=== PATIENT | female | born 1990 | race Caucasian/White ===

== ENCOUNTER 2017-01-28 07:07 | Emergency (ER) | payer MEDICAID ==
[~2017-01-28] VITALS: Ht 165.1 cm; Wt 74.0 kg
[~2017-01-28 07:07] MED LIST: EXCED PO; ONDA4TAB14 PO
[2017-01-28 07:09] VITALS: Ht 165.1 cm; Wt 74.0 kg
--- NOTE | 2017-01-28 07:40 | ERD ---
ER Documentation Chief Complaint Date/Time DATE: 01/28/17 TIME: 07:27 Chief Complaint left eye lynn, vomitting x 2 days HPI 26-year-old female presented emergency department for left-sided facial pain, vomiting, urinary frequency. Her symptoms been on and off for about 2 days. Had a nonbilious and nonbloody vomiting once this morning. Denies headache, loss of consciousness, dizziness, blurry vision, changes in vision, photophobia, ear pain, throat pain, difficulty swallowing, neck pain, shoulder pain, chest pain, cough, hemoptysis, abdominal pain, back pain, loss of appetite, hematochezia, diarrhea, constipation, , the possibility of being , bladder and bowel incontinences, extremity weakness, extremity tenderness, numbness or tingling sensation, difficulty walking, recent travel, recent exposure to illness, recent antibiotic use in the last 3 months, fever, chills. Allergy: NKDA. PMH: Denies. Family medical history: Denies. AO LMP: January 21, 2017. Medications: Denies. Surgery: Denies. Primary Social History: Denies smoking, use of alcohol, use of illegal drugs. ROS All systems reviewed and are negative except as per history of present illness. Medications Home Meds Active Scripts Acetaminophen/Aspirin/Caffeine* (Excedrin*) 1 Tab Tab, 1 TAB PO BID Y for HEADACHE, #15 TAB Prov:MERLE ROCHA 01/28/17 Ibuprofen* (Motrin*) 800 Mg Tab, 800 MG PO Q6H Y for PAIN AND OR ELEVATED TEMP, #30 TAB Prov:MERLE ROCHA 01/28/17 Amoxicillin/Potassium Clav (Amox-Clav 875-125 mg Tablet) 875-125 mg Tab, 1 TAB PO BID for 7 Days, #14 TAB Prov:JANETMERLE RODRÍGUEZ F 01/28/17 Acetaminophen/Aspirin/Caffeine* (Excedrin*) 1 Tab Tab, 1 TAB PO BID Y for HEADACHE, #15 TAB Prov:JOSEPH CASTRO PA-C 07/21/16 Ondansetron (Ondansetron Odt) 4 Mg Tab.rapdis, 4 MG PO Q6H Y for NAUSEA AND/OR VOMITING, #10 TAB Prov:JOSEPH CASTRO PA-C 07/21/16 Allergies Allergies: Coded Allergies: No Known Allergy (Unverified , 01/28/17) PMhx/Soc Medical and Surgical Hx: pt denies Medical Hx, pt denies Surgical Hx Hx Alcohol Use: No Hx Substance Use: No Hx Tobacco Use: No Smoking Status: Never smoker Physical Exam Vitals Vital Signs Date Time Temp Pulse Resp B/P Pulse Ox O2 Delivery O2 Flow Rate FiO2 01/28/17 07:09 98.1 66 19 114/72 98 Physical Exam CONSTITUTIONAL: Well-appearing; well-nourished; in no apparent distress. HEAD: Normocephalic; atraumatic. EYES: Conjunctiva clear, sclera non-icteric, EOM intact. PERRLA. Extraocular movement of her eyes is within normal limits. No pain in eye movement. No light sensitivity. Ears: Hearing intact. EACs clear, TMs non-bulging, non-inflamed, translucent & mobile, ossicles normal appearance, No obstructions, no erythema, no discharges Nose: No obstructions. No polyps. No external lesions. Mucosa non-inflamed. No external lesions, septum and turbinates normal. No rhinorrhea. No discharges. Frontal sinus is tender to palpation. Maxillary sinus is tender to palpation. MOUTH: Moist mucous membranes, no lesion, no obstructions, no vesicles, no thrush, patent airway Throat: Uvula in midline. Right tonsil is +1 with no erythema, no exudate. Left tonsil is +1 with no erythema, no exudate. Tolerating secretions well. Good gag reflex. Patent airway. Neck: Supple, without lesions, bruits, or adenopathy. No mass. Thyroid non- enlarged and non-tender to palpation. CHEST: Symmetrical chest. Respirations even and not labored. No retractions noted. CARDIOVASCULAR: Normal S1, S2. RRR. No murmurs, gallops. RESPIRATORY: Normal chest excursion with respiration; breath sounds clear and equal bilaterally; no wheezes, rhonchi, or rales. Breathing even and unlabored. Speaking in clear, full, and complete sentences w/ ease. ABDOMEN: Normal bowel sounds normal. Soft, round, non-distended, non-guarding, no tenderness, no rebound, no organomegaly, no masses, no pulsating abdominal mass. No hernia. No peritoneal signs. : No CVA tenderness. BACK: Symmetrical shoulder. Spine is midline without deformity, tenderness. No evidence of trauma or deformity. PELVIS: Stable pelvis. No evidence of trauma or deformity. MUSCULOSKELETAL: Normal gait and station. No misalignment, asymmetry, crepitation, defects, tenderness, masses, effusions, decreased range of motion, instability, atrophy or abnormal strength or tone in the head, neck, spine, ribs , pelvis or extremities. No calf tenderness. NEUROVASCULAR: Distal pulses are present. Pedal pulse are present, equal, and normal. Capillary refills are < 2 seconds. NEUROLOGIC: Alert and oriented x4. Speaks full and clear sentences. Cranial Nerves II-XII normal. Sensation to pain, touch, and proprioception normal. Grossly unremarkable. No neurologic deficits. Romberg test is negative. PSYCHOLOGICAL: The patients mood and manner are appropriate. No hallucinations , delusions. Not SI. Not HI. Has the capacity to decide for self SKIN: Normal for age and ethnicity; warm; dry; good turgor; no apparent lesions or exudates. No rashes, hives, discoloration. Intact. Results 24 hrs Laboratory Tests Test 01/28/17 07:55 Urine Color LT. YELLOW Urine Clarity CLEAR Urine pH 5.5 Urine Specific Vernon <=1.005 Urine Ketones NEGATIVE Urine Nitrite NEGATIVE Urine Bilirubin NEGATIVE Urine Urobilinogen 0.2 E.U./dL Urine Leukocyte Esterase TRACE Urine Microscopic RBC 0-2/HPF Urine Microscopic WBC 2-5/HPF Urine Epithelial Cells MANY Urine Bacteria MODERATE Urine Hemoglobin NEGATIVE Urine Glucose NEGATIVE% Urine Total Protein NEGATIVE Current Medications Medications (Trade) Dose Ordered Sig/Marshall Route PRN Reason Start Time Stop Time Status Last Admin Dose Admin Ketorolac Tromethamine (Toradol) 30 mg ONCE STAT IM 01/28/17 07:41 01/28/17 07:43 DC 01/28/17 07:55 Ondansetron HCl (Zofran Odt) 4 mg ONCE STAT ODT 01/28/17 07:41 01/28/17 07:43 DC 01/28/17 07:55 Procedures/MDM Examination: Please see physical examination. Disease process, medical treatment was explained to the patient and family member. They verbalized understanding and agreed with the diagnostic tests, medical treatment, and follow-up care. Blood works unremarkable except POC urine : Negative. Urinalysis: Reviewed. Treatment: Toradol. Zofran. Re-evaluation: Denies headache, dizziness, blurry vision, throat pain, difficulty swallowing, neck pain, shoulder pain, chest pain, back pain, abdominal pain, nausea. No episode of emesis in the emergency department. There is no right upper/right lower/epigastric/left upper/left lower abdominal tenderness and light and deep palpation. Negative on Rovsing's sign. Negative Florence sign. Able to jump 10 times without developing abdominal pain. No peritoneal signs. No CVA tenderness. Alert oriented 4. Speaks full and clear sentences. Extraocular movement of her eyes are within normal limits. No pain on eye movement. Observed texting, using her cell phone. No neck stiffness. No nuchal rigidity. Good and full range of motion of neck and spine Without pain/limitation/difficulty/discomfort. Cranial nerves II through XII are intact. No neurological deficit. No neurovascular deficits. Stated that she feels much better at this time and is ready to go home. Consultation: None. Differential diagnosis: Subarachnoid hemorrhage versus meningitis versus migraine versus tension headache versus sinusitis versus headache versus bronchitis versus urinary tract infection versus viral syndrome Medical decision makin-year-old female presented emergency department for left-sided facial pain, vomiting, urinary frequency. Her symptoms been on and off for about 2 days. Had a nonbilious and nonbloody vomiting once this morning. Patient's complaint, patient's history about her complaint, my physical findings, diagnostic test results, my reevaluation are consistent with my final diagnosis of sinusitis, urinary tract infection. Medications prescribed are the following: Excedrin. Augmentin. Zofran. Tylenol. Patient and family member are made aware of the side effects and adverse reactions of the medications prescribed. Instructed on when to seek emergent and medical attention in case allergic/anaphylactic reactions or severe side effects and or adverse reactions to medications. Patient and family member verbalized understanding. Patient instructed Instructed to follow-up with his PCP in 24-48 hours. Instructed to Call 911 for chest pain, shortness of breath. Advised to come back here in ED as soon as possible for severity of symptoms which includes but not limited to: any new symptoms; shortness of breath/difficulty of breathing; cardiovascular changes; severe gastrointestinal symptoms; signs and symptoms of bleeding and or infection; signs of compartment syndrome/neurovascular changes; neurological changes/deficits. Patient and family member verbalized understanding. Upon discharge, patient is alert and oriented x 4, speaks full and clear sentences, denies pain, has no neurological deficits, has no neurovascular deficits, difficulty of breathing. Breathing even and unlabored. Lung sounds are clear to auscultation. Not in distress. Appears comfortable. Ambulatory with steady gait. Appears satisfied with care provided here in ED. Departure Diagnosis: Primary Impression: Sinusitis Additional Impression: UTI (urinary tract infection) Condition: Good Additional Instructions: Instructed to follow-up with his PCP in 24-48 hours. Instructed to Call 911 for chest pain, shortness of breath. Advised to come back here in ED as soon as possible for severity of symptoms which includes but not limited to: any new symptoms; shortness of breath/difficulty of breathing; cardiovascular changes; severe gastrointestinal symptoms; signs and symptoms of bleeding and or infection; signs of compartment syndrome/neurovascular changes; neurological changes/deficits. Patient and family member verbalized understanding. MERLE ROCHA Jan 28, 2017 07:40
[2017-01-28] MEDS ORDERED: ONDANSETRON (ODT) 4 MG TAB ODT STA (07:41)
[2017-01-28] MEDS ORDERED: KETOROLAC 30 MG INJ IM STA (07:41)
[2017-01-28 08:17] LABS: ADD UMIC YES; UR BILIRUBIN (Dip) NEGATIVE (NEGATIVE); UR BLOOD (Dip) NEGATIVE (NEGATIVE); UR CLARITY CLEAR (CLEAR); UR COLOR LT. YELLOW (YELLOW); UR GLUCOSE (Dip) NEGATIVE (NEGATIVE); UR KETONES (Dip) NEGATIVE (NEGATIVE); UR LEUKOCYTE ESTERASE (Dip) TRACE (NEGATIVE); UR NITRITE (Dip) NEGATIVE (NEGATIVE); UR TOTAL PROTEIN (Dip) NEGATIVE (NEGATIVE); UR UROBILINOGEN (Dip) 0.2 E.U./dL (0.1-1.0)
[2017-01-28 08:35] LABS: UR BACTERIA MODERATE; URINE RBCS 0-2 /HPF (0)
[2017-01-28] MEDS ORDERED: AMOX1TAB10 PO (08:49)
[2017-01-28] MEDS ORDERED: IBUP800T25 PO (08:50)
[2017-01-28] MEDS ORDERED: EXCED PO (08:51)
== END 2017-01-28 08:57 | disposition home or self-care (01) ==
LOC: E/R 07:07
DX: J32.9 Chronic sinusitis, unspecified (principal); N39.0 Urinary tract infection, site not specified; R11.10 Vomiting, unspecified
CPT/HCPCS: 81001; 96372; J1885; Z7502; Z7610

== ENCOUNTER 2018-12-07 09:12 | Emergency (ER) | payer MEDICAID ==
[~2018-12-07] VITALS: Ht 162.6 cm; Wt 70.0 kg
[~2018-12-07 09:12] MED LIST changes: +AMOX1TAB10 PO; +IBUP800T48 PO
[2018-12-07 09:13] VITALS: Ht 162.6 cm; Wt 70.0 kg
[2018-12-07] MEDS ORDERED: KETOROLAC 30 MG INJ IV STA (09:35)
[2018-12-07] MEDS ORDERED: ACETAMINOPHEN 500 MG TAB PO STA (09:35)
[2018-12-07] MEDS ORDERED: ONDANSETRON 4 MG INJ IV STA (09:35)
[2018-12-07] MEDS ORDERED: SOD CHLORIDE 0.9% 1,000 ML IV ONE (10:00)
[2018-12-07] MEDS ORDERED: ONDA4TAB8 PO (11:39)
[2018-12-07] MEDS ORDERED: ACET500C5 PO (11:39)
[2018-12-07 11:59] VITALS: BP 115/74; PULSE 65; RESP 18
--- NOTE | 2018-12-12 06:56 | ERD ---
ER Documentation Chief Complaint Chief Complaint pt is bib family with c/o vomiting, diarrhea and aches and pain x 1 day HPI History of Present Illness: 28-year-old female with no past medical history coming in today with complaint of vomiting, diarrhea, body aches, fatigue. Patient reporting over 5 episodes of vomiting in over 10 episodes of diarrhea. Patient reports symptoms started yesterday. Patient denies sick contacts. Patient denies fever, chills. At home pharmacological/nonpharmacological treatment for symptoms: Denies Denies social concerns; Denies recent foreign travel ROS All systems reviewed and are negative except as per history of present illness. Medications Home Meds Active Scripts Acetaminophen* (Tylophen*) 500 Mg Capsule, 2 CAP PO Q6 PRN for PAIN AND OR ELEVATED TEMP, #20 CAP 2 tabs every 6-8 hours. 8 tabs max daily. Prov:CAITLYN LEON NP 12/07/18 Ondansetron Hcl* (Zofran*) 4 Mg Tablet, 4 MG PO Q8 PRN for NAUSEA AND/OR VOMITING, #10 TAB Prov:CAITLYN LEON NP 12/07/18 Acetaminophen/Aspirin/Caffeine* (Excedrin*) 1 Tab Tab, 1 TAB PO BID PRN for HEADACHE, #15 TAB Prov:JOSEFINACATRINAESTEBAN Rossi 01/28/17 Ibuprofen* (Motrin*) 800 Mg Tab, 800 MG PO Q6H PRN for PAIN AND OR ELEVATED TEM P, #30 TAB Prov:JANETANNECATRINAESTEBAN F 01/28/17 Amoxicillin/Potassium Clav (Amox-Clav 875-125 mg Tablet) 875-125 mg Tab, 1 TAB PO BID for 7 Days, #14 TAB Prov:MERLE ROCHA F 01/28/17 Acetaminophen/Aspirin/Caffeine* (Excedrin*) 1 Tab Tab, 1 TAB PO BID PRN for HEADACHE, #15 TAB Prov:JOSEPH CASTRO PA-C 07/21/16 Ondansetron (Ondansetron Odt) 4 Mg Tab.rapdis, 4 MG PO Q6H PRN for NAUSEA AND/OR VOMITING, #10 TAB Prov:JOSEPH CASTRO PA-C 07/21/16 Allergies Allergies: Coded Allergies: No Known Allergy (Unverified , 01/28/17) PMhx/Soc Medical and Surgical Hx: pt denies Medical Hx History of Surgery: Yes (CS) Hx Alcohol Use: No Hx Substance Use: No Hx Tobacco Use: No FmHx Family History: No coronary disease Physical Exam Physical Exam Const: No acute distress, afebrile Head: Atraumatic Eyes: Normal Conjunctiva ENT: Normal External Ears, Nose oropharynx clear, mildly dry mucous membranes.; Neck: Full range of motion. No meningismus. Resp: Clear to auscultation bilaterally Cardio: Regular rate and rhythm, no murmurs Abd: Soft, non tender, non distended. No guarding, no masses, no rigidity, no grimacing. Skin: No petechiae or rashes Back: No midline or flank tenderness Ext: No cyanosis, or edema Neur: Awake and alert x3, speaking in clear sentences, no focal deficits or facial asymmetry Psych: Normal Mood and Affect Results 24 hrs Laboratory Tests Test 12/07/18 10:08 12/07/18 10:11 Bedside Urine pH (LAB) 6.5 Bedside Urine Protein (LAB) Negative Bedside Urine Glucose (UA) Negative Bedside Urine Ketones (LAB) Negative Bedside Urine Blood Trace-intact Bedside Urine Nitrite (LAB) Negative Bedside Urine Leukocyte Esterase (L Negative POC Beta HCG, Qualitative NEGATIVE Current Medications Medications Dose Sig/Marshall Start Time Status Last (Trade) Ordered Route PRN Stop Time Admin Dose Reason Admin 1,000 mg ONCE STAT 12/07/18 DC 12/07/18 Acetaminophen PO 09:35 10:10 (Tylenol 12/07/18 09:43 Tab) Sodium 1,000 ml @ Q1H ONCE 12/07/18 DC 12/07/18 Chloride 1,000 mls/hr IV 10:00 10:12 12/07/18 10:59 Ondansetron 4 mg ONCE STAT 12/07/18 DC 12/07/18 HCl (Zofran IV 09:35 10:10 Inj) 12/07/18 09:43 Ketorolac 30 mg ONCE STAT 12/07/18 DC 12/07/18 Tromethamine IV 09:35 10:15 (Toradol) 12/07/18 09:43 Procedures/MDM ED course includes a thorough examination and history. Medications: IV NS, acetaminophen, Zofran, ketorolac Imaging: -- Labs: Urine , urinalysis Low suspicion for life-threatening medical emergency. Otherwise healthy patient presenting with constellation of symptoms likely representing uncomplicated viral syndrome/gastroenteritis as characterized by history, physical exam findings, lab findings. urinalysis negative for infection. Urine negative. No respiratory distress, otherwise relatively well appearing and nontoxic. Patient passed p.o. challenge during ER visit. Patient without any pain at this time. Patient without vomiting or nausea at this time. Patient afebrile and hemodynamically stable. Patient reports feeling better after IV hydration. Verbalizes understanding of instructions. Disposition given. Patient educated on diagnoses, prescriptions, follow-up care, return precautions. Strict return precautions given for worsening condition; questions answered discharge. Disposition for discharge with followup in 2 days with PCP/clinic. Departure Diagnosis: Primary Impression: Viral syndrome Additional Impression: Gastroenteritis Condition: Stable Patient Instructions: Gastroenteritis, Non-Infectious (Child) (Adult), Viral Syndrome (Adult) Referrals: [facility] Usted se bruce hecho un examen mdico de control que le indica que no est en jorge luis condicin que requiera tratamiento urgente en el Departamento de Emergencia. Un estudio ms profundo y el tratamiento de gong condicin pueden esperar sin ningn riesgo hasta que usted sea atendida/o en el consultorio de gong mdico o jorge luis clnica. Es responsabilidad suya arreglar jorge luis marcos para el seguimiento del atiya. MANEJO DE CONDICIONES NO URGENTES EN EL FUTURO 1) Si usted tiene un mdico de atencin primaria: Usted debera llamar a gong mdico de atencin primaria antes de venir al departamento de emergencia. Despus de las horas de consultorio, gong doctor o ogng asociado/a est disponible por telfono. El mdico o enfermero de girma en el servicio telefnico puede asesorarle por bo medio para atender el problema, o atiya contrario se puede programar jorge luis marcos. 2) Si usted no tiene un mdico de atencin primaria: Llame al mdico o clnica de referencia que aparece abajo lluvia las horas de consultorio para hacer jorge luis marcos para que le vean. CLINICAS: [facility] [phone] [facility] [phone] [address] [facility] [phone] [facility] [phone] [place] [phone] [address] [place] [id number] [phone] [facility]. [facility] () Usted se bruce hecho un examen mdico de control que le indica que no est en jorge luis condicin que requiera tratamiento urgente en el Departamento de Emergencia. Un estudio ms profundo y el tratamiento de gong condicin pueden esperar sin ningn riesgo hasta que usted sea atendida/o en el consultorio de gong mdico o jorge luis clnica. Es responsabilidad suya arreglar jorge luis marcos para el seguimiento del atiya. MANEJO DE CONDICIONES NO URGENTES EN EL FUTURO 1) Si usted tiene un mdico de atencin primaria: Usted debera llamar a gong mdico de atencin primaria antes de venir al departamento de emergencia. Despus de las horas de consultorio, gong doctor o gong asociado/a est disponible por telfono. El mdico o enfermero de girma en el servicio telefnico puede asesorarle por bo medio para atender el problema, o atiya contrario se puede programar jorge luis marcos. 2) Si usted no tiene un mdico de atencin primaria: Llame al mdico o condado institucions de referencia que aparece abajo lluvia las horas de consultorio para hacer jorge luis marcos para que le vean. SI USTED NO PUEDE PAGAR PARA MADDIE UN MEDICO puede ir a: [facility] [address] [place] [address] [facility] [address] [place] [address] [facility] [address] [place] [address] [facility] [address] [place], [place] [id number] Additional Instructions: Muchas donna por permitirnos participar en gong cuidado. Gong vanessa y seguridad es nuestra principal prioridad en [facility]. Es importante leer todas las instrucciones de adonis y la educacin que se proporcionan en gong paquete de adonis. Llame a gong mdico de atencin primaria MAANA para jorge luis marcos lluvia los prximos 2 a 4 paige y lleve toda la informacin y los medicamentos recetados. Llene las recetas y siga exactamente las instrucciones de la etiqueta. -Zofran es un medicamento para las nuseas / vmitos; tome karena medicamento segn sea necesario para las nuseas / vmitos / disminucin del apetito. -Acetaminofeno sarah medicamento para el dolor para el dolor leve a moderado; alysia karena medicamento segn sea necesario para el dolor. Si los sntomas empeoran y gong proveedor no est disponible, regrese inmediatamente al Departamento de Emergencias. - Thank you very much for allowing us to participate in your care. Your health and safety is our top priority at [facility]. It is important to read all discharge instructions and education provided in your discharge packet. Call your primary care doctor TOMORROW for an appointment during the next 2-4 days and bring all the information and medications prescribed. Have prescriptions filled and follow precisely the directions on the label. -Zofran is a medication for nausea/vomitting; take this medication as needed for nausea/vomiting/decreased appetite. -Acetaminophen as of pain medication for mild to moderate pain; take this medication as needed for pain. If the symptoms get worse and your provider is unavailable, return to the Emergency Department immediately. CAITLYN LEON NP Dec 12, 2018 06:56
== END 2018-12-07 12:02 | disposition home or self-care (01) ==
LOC: FTE 09:12
DX: B34.9 Viral infection, unspecified (principal); K52.9 Noninfective gastroenteritis and colitis, unspecified
CPT/HCPCS: 81003; 81025; J1885; J2405; J7030; Z7610; 96361; 96374; 96375